=== PATIENT | female | born 1955 | race Caucasian/White ===

== ENCOUNTER → 2021-10-01 09:43 | Outpatient (BNVA) | payer MEDICARE, BC, SELFPAY | PROVIDERS: Family Provider Family Medicine; Referring Provider Internal Medicine; Visit Provider Specialist | DX: M25.552 Pain in left hip (principal) | CPT/HCPCS: 73502 ==

== ENCOUNTER 2021-10-09 06:00 | Outpatient (RCR) | payer MEDICARE, SELFPAY | END 2021-11-07 23:59 | disposition home or self-care (01) | LOC: GPT 06:00 | PROVIDERS: PCP Internal Medicine; Visit Provider Specialist | DX: M54.50 Low back pain, unspecified (principal) | CPT/HCPCS: 97110; 97140; 97161 ==

== ENCOUNTER 2023-11-20 09:50 | Outpatient (CLI) | payer MEDICARE, SELFPAY ==
--- NOTE | 2023-11-20 10:00 | MR_ITS ---
WS: [id number] MRI PELVIS WITHOUT CONTRAST. COMPARISON: LEFT hip radiographs 10/01/2021 Multiplanar, multisequence imaging is performed without contrast. RIGHT hip: Advanced degenerative changes of the RIGHT hip joint. Loss of cartilage with subchondral c ystic changes and erosions along the femoral head. Synovial thickening and a moderate size joint effu vanessa. There is slight lateral subluxation of the femoral head with a large osteophyte from the acetab ulum extending laterally. Abnormal signal in the labrum. LEFT hip: Mild narrowing of the LEFT hip. No marrow edema. Very minimal osteophytosis. No definite la bral abnormality. Normal appearance of the SI joints. Heterogeneous appearance of the central uterus. Uterus appears sl ightly lobulated. This may be a fibroid uterus. No free fluid in the pelvis. No history of any pelvic surgery provided. L5 anterolisthesis by 10 mm. Severe disc space narrowing at L5-S1. MR/MR pelvis wo con* [id number] IMPRESSION: 1. Advanced degenerative arthritis at the RIGHT hip. Subchondral cystic change s with erosions and lateral subluxation. 2. Minimal degenerative changes at the LEFT hip. 3. Grade 2 spondylolisthesis of L5 with severe disc space narrowing at L5-S1. 4. Low-attenuation soft tissue mass in the pelvis. Suspect this is probably a fibroid uterus. No prior surgeries reported. Recommend additional evaluation wi th transvaginal pelvic ultrasound imaging. Uterus and endometrium need to be fu rther evaluated.
== END 2023-11-20 09:51 | disposition home or self-care (01) ==
LOC: RAD 09:51
PROVIDERS: PCP Internal Medicine; Visit Provider Family Medicine
DX: I71.012 Dissection of descending thoracic aorta (principal); M16.11 Unilateral primary osteoarthritis, right hip; M43.16 Spondylolisthesis, lumbar region; R19.09 Other intra-abdominal and pelvic swelling, mass and lump
CPT/HCPCS: 72195

== ENCOUNTER 2024-04-07 11:28 | Emergency (ER) | payer MEDICARE, SELFPAY ==
[2024-04-07 11:33] VITALS: BP 99/71; PULSE 99; RESP 16; TEMP 36.8; O2SAT 98; BMI 17.4
--- NOTE | 2024-04-07 11:40 | XRR_ITS ---
PROCEDURE INFORMATION: Exam: XR Chest Exam date and time: 04/07/2024 12:22 PM Age: 68 years old Clinical indication: Pain; Angina pectoris; Additional info: Cp TECHNIQUE: Imaging protocol: Radiologic exam of the chest. Views: 1 view. COMPARISON: No relevant prior studies available. FINDINGS: Lungs: There is atelectasis or scarring in the right upper lung zone. There are no definite infiltrates. Linear opacity projecting in the right lung apex is favored to be a skin fold Pleural spaces: Unremarkable. No pleural effusion. No pneumothorax. Heart/Mediastinum: The heart size is within normal limits. Bones/joints: There is scoliosis convex right. There are degenerative changes in the spine. XR/XR chest 1V portable [id number] IMPRESSION: No acute infiltrates detected
--- NOTE | 2024-04-07 11:40 | ECG_ITS ---
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 [id number]
--- NOTE | 2024-04-07 11:40 | CTR_ITS ---
PROCEDURE INFORMATION: Exam: CTA Chest With Contrast Exam date and time: 04/07/2024 12:50 PM Age: 68 years old Clinical indication: Angina pectoris; Chest pain, low BP; Additional info: Cp TECHNIQUE: Imaging protocol: Computed tomographic angiography of the chest with contrast. Exam focused on the arteries. 3D rendering (Not supervised by radiologist): MIP and/or 3D reconstructed images were created by the technologist. Radiation optimization: All CT scans at this facility use at least one of these dose optimization techniques: automated exposure control; mA and/or kV adjustment per patient size (includes targeted exams where dose is matched to clinical indication); or iterative reconstruction. Contrast material: OMNI 350; Contrast volume: 95 ml; Contrast route: INTRAVENOUS (IV); COMPARISON: CR XR chest 1V portable [id number] 04/07/2024 12:22 PM RADIATION DOSE METRICS: Total DLP (mGy-cm): 168.47 FINDINGS: Study is degraded by motion artifact Pulmonary arteries: See Heart finding. Aorta: There are atherosclerotic changes in the aorta. There is no dissection The inferior thoracic descending aorta is dilated measuring 4.0 x 3.7 cm Lungs: There is a semi-solid nodule in the left upper lobe measuring 4 mm on image 128 of series 6. There is a 7 mm nodule in the right upper lobe seen on series 6 image 88. There is a 6 mm nodule anteriorly in the right upper lobe on image 100. There is a 4 mm nodule adjacent to the minor fissure on image 244. There is a 3 mm nodule in the right middle lobe on image 291. There are no endobronchial lesions. There is atelectasis in both lower lobes without definite infiltrate Pleural spaces: There are small bilateral pleural effusions Heart: There is a zncgt-xr-peuksrvw size pericardial effusion. No pulmonary embolus is detected in the main pulmonary trunk. No pulmonary embolus is detected in the main right or left pulmonary arteries. No pulmonary embolus is detected in proximal or 2nd order branch vessels Coronary arteries: There is coronary artery calcification. Lymph nodes: there is mediastinal adenopathy for example an AP window lymph node is measured on series 6, image 151 at 1.7 x 0.7 cm. There is enlarged right hilar lymph node measuring 1.5 x 1.3 cm on image 212. Adrenal glands: No adrenal lesions detected Kidneys: There is an eccentrically arising nodule from the upper pole of the left kidney measuring 1.3 x 1.2 x 1.3 cm. This is not a simple cyst. It could be a high density or hemorrhagic cyst or could be solid. This lesion needs follow-up either with a CT adrenal mass protocol or MRI. Bones/joints: There are degenerative changes and scoliosis in the thoracic spine. Soft tissues: Unremarkable. CT/CT angio chest PE protcl [id number] IMPRESSION: 1. Negative for detectable pulmonary embolus 2. 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 No dissection detected though study was optimized to evaluate the pulmonary arterial system and not the aorta 3. Coronary artery calcification 4. Gbwov-du-nxizvtyv size pericardial effusion 5. Small bilateral pleural effusions 6. Pulmonary nodules as described above. Largest measures 7 mm. Follow-up in 6 months time recommended 7. Eccentrically arising mass from the upper pole of the left kidney which is not a simple cyst and needs follow-up either with CT renal mass protocol or MRI 8. Mediastinal and right hilar adenopathy 9. Study is degraded by motion artifact
--- NOTE | 2024-04-07 11:42 | W.ED.GENADLT ---
HPI - General Adult General: Chief complaint: General Medical Stated complaint: b/p high, Time Seen by Provider: 04/07/24 11:32 Source: patient Mode of arrival: ambulatory Limitations: no limitations History of Present Illness: 68-year-old female states she been having some palpitations over the last 2 days. She states that her heart rate has been up to the 160s she states she has had some slight dyspnea and some mild chest pain she denies any fever denies any vomiting or diarrhea. Associated symptoms: Reports dyspnea and palpitations; Deny headache(s), nausea, rash or vomiting Related Data Home Medications Medication Instructions Recorded Confirmed No Known Home Medications 04/07/24 04/07/24 Allergies Allergy/AdvReac Type Severity Reaction Status Date / Time No Known Allergies Allergy Unverified 10/01/21 10:13 Review of Systems Const: Denies: fever(s), chills, body aches or change in appetite ENMT: Denies: throat pain or dental pain Card: Reports: palpitations Resp: Reports: dyspnea GI: Denies: abdominal pain, nausea, vomiting or diarrhea : Denies: dysuria Musc: Denies: neck pain or back pain Skin/Breast: Denies: rash Neuro: Denies: headache(s) PFSH ED PFSH: Social History Smoking and tobacco/nicotine status: current every day tobacco/nicotine user (3/4 pack a day) Physical Exam Const: COMMON NORMALS: no acute distress, patient oriented x3 and healthy appearing HENMT: COMMON NORMALS: normocephalic and atraumatic HEAD & SCALP: normocephalic and atraumatic Eye: COMMON NORMALS: conjunctivae normal CONJUNCTIVA: Yes conjunctivae normal Neck/C-Spine: COMMON NORMALS: full ROM and supple Chest: COMMONS NORMALS: normal inspection of the chest Resp: COMMON NORMALS: normal respiratory effort, No retractions, No use of accessory muscles and clear to auscultation bilaterally AUSCULTATION: clear to auscultation bilaterally Cardio: COMMON NORMALS: regular rate, regular rhythm and No murmurs present (Cardio) RATE: regular rate RHYTHM: regular rhythm GI: COMMON NORMALS: Normal to inspection, nondistended, normoactive bowel sounds present, Soft to palpation, non-tender and no masses PALPATION: Yes Soft to palpation Extremity: COMMON NORMALS: normal to inspection and full ROM Neuro: COMMON NORMALS: patient oriented x3, moves all extremities and no focal motor deficits Psych: COMMON NORMALS: mental status grossly normal, Normal thought process present and cooperative THOUGHT PROCESS: Normal thought process present Skin: COMMON NORMALS: no rashes or lesions noted and no wounds GENERAL SKIN EXAM: no rashes or lesions noted Course Vital Signs: Vital signs: Vital Signs Temperature 98.2 F 04/07/24 11:33 Pulse Rate 85 04/07/24 14:42 Respiratory Rate 16 04/07/24 14:42 Blood Pressure 121/75 04/07/24 14:42 Pulse Oximetry 96 04/07/24 14:42 Oxygen Delivery Me thod Room Air 04/07/24 13:33 MDM - General Adult Medical Decision Making Patient presents here with episodes of tachycardia she had had some vomiting abdominal pain here after the CT could be in response to the contrast. I did inform her CT of her chest showed small pleural effusions with possible cardiac effusion did offer her admission she states she feels improved would like to follow-up with her PCP her heart rate blood pressures vital signs here are all been normal and so has her troponin she has had no chest pain or shortness of breath here that is been severe in nature she is return if worsening she understands agrees to plan. Medical Records I reviewed the patient's medical records. Lab Data I reviewed the patient's lab results. 04/07/24 11:40 04/07/24 11:40 Radiology Impressions Chest CTA 04/07/24 11:40 IMPRESSION: 1. Negative for detectable pulmonary embolus 2. 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 No dissection detected though study was optimized to evaluate the pulmonary arterial system and not the aorta 3. Coronary artery calcification 4. Koiqn-mw-ztockpaf size pericardial effusion 5. Small bilateral pleural effusions 6. Pulmonary nodules as described above. Largest measures 7 mm. Follow-up in 6 months time recommended 7. Eccentrically arising mass from the upper pole of the left kidney which is not a simple cyst and needs follow-up either with CT renal mass protocol or MRI 8. Mediastinal and right hilar adenopathy 9. Study is degraded by motion artifact Chest X-Ray 04/07/24 11:40 IMPRESSION: No acute infiltrates detected Gallbladder Ultrasound 04/07/24 13:29 IMPRESSION: 1. Slightly contracted gallbladder with small amount sludge and a few small gallstones. 2. No intrahepatic bile duct dilatation or common bile duct dilatation. 3. Hepatic hemangioma, LEFT lobe. Laboratory Results WBC 11.28 10^3/uL (3.29-11.43) 04/07/24 11:40 RBC 3.55 10^6/uL (3.85-5.65) L 04/07/24 11:40 Hgb 9.40 g/dL (11.27-16.99) L 04/07/24 11:40 Hct 29.1 % (36-47) L 04/07/24 11:40 MCV 82.0 fl (85-98) L 04/07/24 11:40 MCH 26.5 pg (27-33) L 04/07/24 11:40 MCHC 32.3 g/dL (30-55) 04/07/24 11:40 RDW 14.4 % (12.1-15.1) 04/07/24 11:40 Plt Count 702 10^3/cmm (157-399) H 04/07/24 11:40 MPV 9.2 fL (7.4-10.4) 04/07/24 11:40 Neut % (Auto) 76.9 % 04/07/24 11:40 Lymph % (Auto) 16.0 % 04/07/24 11:40 [place] % (Auto) 5.6 % 04/07/24 11:40 Eos % (Auto) 0.5 % 04/07/24 11:40 Baso % (Auto) 0.5 % 04/07/24 11:40 Neut # (Auto) 8.67 10^3/uL (1.8-7.7) H 04/07/24 11:40 Lymph # (Auto) 1.8 10^3/uL (0.8-4.8) 04/07/24 11:40 [place] # (Auto) 0.6 10^3/uL (0.2-0.9) 04/07/24 11:40 Eos # (Auto) 0.1 10^3/uL (0.0-0.8) 04/07/24 11:40 Baso # (Auto) 0.1 10^3/uL (0.0-0.1) 04/07/24 11:40 Nucleated RBC % (auto) 0 % 04/07/24 11:40 Nucleated RBCs # 0.0 /100WBC 04/07/24 11:40 PT 15.30 SECONDS (12.1-14.9) H 04/07/24 11:40 INR 1.13 (0.8-1.2) 04/07/24 11:40 Sodium 135 mmol/L (136-145) L 04/07/24 11:40 Potassium 4.4 mmol/L (3.5-5.1) 04/07/24 11:40 Chloride 96 mmol/L (98-107) L 04/07/24 11:40 Carbon Dioxide 24 mmol/L (22-29) 04/07/24 11:40 Anion Gap 19.4 (5-19) H 04/07/24 11:40 BUN 19 mg/dL (8-23) 04/07/24 11:40 Creatinine 0.8 mg/dL (0.5-0.9) 04/07/24 11:40 GFR Calculation 71.5 mL/min (90-130) L 04/07/24 11:40 Glucose 126 mg/dL (65-115) H 04/07/24 11:40 Calculated Osmolality 284 mOsm/kg (285-295) L 04/07/24 11:40 Calcium 9.3 mg/dL (8.5-10.5) 04/07/24 11:40 Total Bilirubin 0.3 mg/dL (0.15-1.2) 04/07/24 11:40 AST 19 U/L (0-32) 04/07/24 11:40 ALT 25 U/L (0-33) 04/07/24 11:40 Alkaline Phosphatase 182 U/L (35-105) H 04/07/24 11:40 Troponin T Baseline 17 ng/L (0-10) H 04/07/24 11:40 Troponin T 120 Minute 17.32 ng/L (0-10) H 04/07/24 13:32 Delta Troponin T 0.32 ABS# (0-10) 04/07/24 13:32 NT-Pro-B Natriuret Pep 2317 pg/mL (0-125) H 04/07/24 11:40 Total Protein 6.7 g/dL (6.6-8.7) 04/07/24 11:40 Albumin 3.5 g/dL (3.5-5.2) 04/07/24 11:40 Globulin 3.2 g/dL (1.3-4.6) 04/07/24 11:40 All radiology interpretation(s) finalized by discharge EKG Data EKG 1: I personally reviewed and interpreted this EKG as follows: EKG interpretation date: 04/07/24 EKG interpretation time: 11:47 Interpretation: Normal sinus rhythm heart rate [address] or T wave abnormalities QRS 88 QTc 405 Computer generated interpretation: Chest CTA 04/07/24 11:40 IMPRESSION: 1. Negative for detectable pulmonary embolus 2. 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 No dissection detected though study was optimized to evaluate the pulmonary arterial system and not the aorta 3. Coronary artery calcification 4. Gdlsu-yn-jywizmgm size pericardial effusion 5. Small bilateral pleural effusions 6. Pulmonary nodules as described above. Largest measures 7 mm. Follow-up in 6 months time recommended 7. Eccentrically arising mass from the upper pole of the left kidney which is not a simple cyst and needs follow-up either with CT renal mass protocol or MRI 8. Mediastinal and right hilar adenopathy 9. Study is degraded by motion artifact Chest X-Ray 04/07/24 11:40 IMPRESSION: No acute infiltrates detected Gallbladder Ultrasound 04/07/24 13:29 IMPRESSION: 1. Slightly contracted gallbladder with small amount sludge and a few small gallstones. 2. No intrahepatic bile duct dilatation or common bile duct dilatation. 3. Hepatic hemangioma, LEFT lobe. Discharge Plan Discharge Patient Disposition: Home Clinical Impression: Palpitations, Gallstones Condition: Stable Prescriptions: No Action No Known Home Medications Discharge Orders: Discharge ED (Routine); Ordered 04/07/24 Ordered By: Leslie Buchanan Referrals: Emerald Bianchi [Primary Care Provider] - 4-7 days Discharge Diet: Advance as tolerated Discharge Activity: Resume usual activity Patient Instructions: Heart Palpitations (ED), Gallstones (ED) Coding Level of Care Code ED Systems Analysis Manager for Ashley Garsia
[2024-04-07 11:48] LABS: Basophils # 0.1 10^3/uL (0.0-0.1); Basophils % 0.5 %; Eosinophils # 0.1 10^3/uL (0.0-0.8); Eosinophils % 0.5 %; Hematocrit 29.1 % (36-47); Lymphocytes # 1.8 10^3/uL (0.8-4.8); Mean Corpuscular HGB Conc 32.3 g/dL (30-55); Mean Corpuscular Hemoglobin 26.5 pg (27-33); Mean Platelet Volume 9.2 fL (7.4-10.4); Monocytes # 0.6 10^3/uL (0.2-0.9); Monocytes % 5.6 %; Neutrophils # 8.67 10^3/uL (1.8-7.7); Neutrophils % 76.9 %; Nucleated Red Blood Cells % 0 %; Platelet Count 702 10^3/cmm (157-399); Red Blood Count 3.55 10^6/uL (3.85-5.65); Red Cell Distribution Width 14.4 % (12.1-15.1); White Blood Count 11.28 10^3/uL (3.29-11.43)
[2024-04-07 12:00] VITALS: BP 110/67; PULSE 84; RESP 18; O2SAT 94
[2024-04-07 12:03] LABS: INR 1.13 (0.8-1.2)
[2024-04-07 12:09] LABS: Troponin(5th) Baseline 17 ng/L (0-10)
[2024-04-07 12:44] LABS: Alanine Aminotransferase 25 U/L (0-33); Albumin Level 3.5 g/dL (3.5-5.2); Alkaline Phosphatase 182 U/L (35-105); Anion Gap 19.4 (5-19); Aspartate Amino Transferase 19 U/L (0-32); Blood Urea Nitrogen 19 mg/dL (8-23); Calcium 9.3 mg/dL (8.5-10.5); Carbon Dioxide 24 mmol/L (22-29); Chloride 96 mmol/L (98-107); Creatinine Clr Calc Pharmacy 57.3648; Globulin 3.2 g/dL (1.3-4.6); Glomerular Filtration Rate 71.5 mL/min (90-130); Glucose 126 mg/dL (65-115); NT Pro B Type Natriuretic Pept 2317 pg/mL (0-125); Osmolality Calculated 284 mOsm/kg (285-295); Potassium 4.4 mmol/L (3.5-5.1); Sodium 135 mmol/L (136-145); Total Bilirubin 0.3 mg/dL (0.15-1.2); Total Protein 6.7 g/dL (6.6-8.7)
[2024-04-07] MEDS: iohexol 350 mg/mL 500 mL Btl (per mL) IV (13:07)
--- NOTE | 2024-04-07 13:29 | US_ITS ---
WS: [id number] RIGHT UPPER QUADRANT ULTRASOUND HISTORY: abd pain COMPARISON: None available. Liver: 16.3 cm in length. Normal size liver. Hypoechoic mass along the surface of the LEFT lobe measu res 2.4 x 1.4 cm. Most likely an hemangioma. No intrahepatic duct dilatation. Portal Vein: Normal hepatopetal flow with monophasic waveform. Gallbladder: Mild gallbladder wall contraction. Sludge and debris within the gallbladder. Additional small stones layering in the gallbladder. CBD: 0.4 cm Pancreas: Normal. Right kidney: 11.5 cm in length. Normal size and echogenicity. No hydronephrosis or mass. Aorta and IVC: Unremarkable abdominal aorta and IVC. No ascites. US/US gall bladder [id number] IMPRESSION: 1. Slightly contracted gallbladder with small amount sludge and a few small ga llstones. 2. No intrahepatic bile duct dilatation or common bile duct dilatation. 3. Hepatic hemangioma, LEFT lobe.
[2024-04-07 13:33] VITALS: BP 114/58; PULSE 74; RESP 18; O2SAT 99
--- NOTE | 2024-04-07 14:11 | ECG_ITS ---
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 [email or web address]
[2024-04-07 14:14] LABS: Troponin 5 2HR 17.32 ng/L (0-10); Troponin 5 2HR Delta 0.32 ABS# (0-10)
[2024-04-07 14:42] VITALS: BP 121/75; PULSE 85; RESP 16; O2SAT 96
--- NOTE | 2024-04-09 00:51 | DCPLANNER ---
Message sent to General Surgery
== END 2024-04-07 14:59 | disposition home or self-care (01) ==
PROVIDERS: Emergency Provider Emergency Medicine; PCP Internal Medicine
DX: R00.2 Palpitations (principal); K80.20 Calculus of gallbladder without cholecystitis without obstruction; F17.210 Nicotine dependence, cigarettes, uncomplicated
CPT/HCPCS: 36415; 71045; 71275; 76705; 80053; 83880; 84484; 85025; 85610; 93005; 99285

== ENCOUNTER → 2024-07-20 13:26 | Outpatient (BNVA) | payer MEDICARE, OTHER, SELFPAY | PROVIDERS: PCP Internal Medicine; Visit Provider Orthopaedic Surgery | DX: M54.9 Dorsalgia, unspecified (principal) | CPT/HCPCS: 72110; 99203 ==

== ENCOUNTER 2024-07-26 10:06 | Emergency (ER) | payer MEDICARE, OTHER, SELFPAY ==
[2024-07-26 10:14] VITALS: BP 151/86; PULSE 100; TEMP 36.6; O2SAT 100; BMI 17.8
[2024-07-26 11:07] LABS: Basophils # 0.1 10^3/uL (0.0-0.1); Basophils % 1.5 %; Eosinophils # 0.1 10^3/uL (0.0-0.8); Eosinophils % 1.5 %; Hematocrit 40.1 % (36-47); Lymphocytes # 1.8 10^3/uL (0.8-4.8); Lymphocytes % 25.7 %; Mean Corpuscular HGB Conc 31.7 g/dL (30-55); Mean Corpuscular Hemoglobin 26.3 pg (27-33); Mean Platelet Volume 9.8 fL (7.4-10.4); Monocytes # 0.5 10^3/uL (0.2-0.9); Monocytes % 6.9 %; Neutrophils # 4.39 10^3/uL (1.8-7.7); Neutrophils % 64.1 %; Nucleated Red Blood Cells % 0 %; Platelet Count 245 10^3/cmm (157-399); Red Blood Count 4.83 10^6/uL (3.85-5.65); Red Cell Distribution Width 18.6 % (12.1-15.1); White Blood Count 6.84 10^3/uL (3.29-11.43)
[2024-07-26 11:23] LABS: INR 2.76 (0.8-1.2)
[2024-07-26 11:27] LABS: Alanine Aminotransferase 9 U/L (0-33); Albumin Level 4.3 g/dL (3.5-5.2); Alkaline Phosphatase 116 U/L (35-105); Aspartate Amino Transferase 20 U/L (0-32); Blood Urea Nitrogen 14 mg/dL (8-23); Calcium 9.6 mg/dL (8.5-10.5); Carbon Dioxide 23 mmol/L (22-29); Chloride 100 mmol/L (98-107); Creatinine Clr Calc Pharmacy 56.9645; Globulin 4.2 g/dL (1.3-4.6); Glomerular Filtration Rate 71.3 mL/min (90-130); Glucose 87 mg/dL (65-115); Osmolality Calculated 282 mOsm/kg (285-295); Sodium 136 mmol/L (136-145); Total Bilirubin 0.2 mg/dL (0.15-1.2); Total Protein 8.5 g/dL (6.6-8.7)
[2024-07-26 11:29] LABS: Anion Gap 17.3 (5-19); Potassium 4.3 mmol/L (3.5-5.1)
== END 2024-07-26 12:11 | disposition left against medical advice (07) ==
PROVIDERS: Emergency Medicine; Emergency Provider Family Medicine; PCP Internal Medicine
DX: Z01.89 Encounter for other specified special examinations (principal); Z53.21 Procedure and treatment not carried out due to patient leaving prior to being seen by health care provider
CPT/HCPCS: 36415; 80053; 85025; 85610

== ENCOUNTER 2024-07-26 12:03 | Outpatient (CLI) | payer MEDICARE, OTHER, SELFPAY ==
--- NOTE | 2024-07-26 12:15 | MR_ITS ---
WS: [id number] MRI LUMBAR SPINE NONCONTRAST HISTORY: Back Pain COMPARISON: None available. TECHNIQUE: Sagittal and axial multisequence imaging is submitted. Mild reversal of the normal cervical lordosis. Mild disc osteophyte encroachment upon the ventral cervical cord. L5 anterolisthesis by 13 mm. 2 to 3 mm retrolisthesis of the L1-L3. Disc spaces are all narrowed and desiccated. Severe disc base narrowing at L5-S1. No compression fractures. Conus terminates normally at L1-2 disc level. T12-L1: Mild annular disc bulging. Shallow RIGHT paracentral disc protrusion. No stenosis. L1-L2: Marked osteophytic ridging and annular disc bulging. Disc encroachment upon the ventral thecal sac and subarticular recesses. Moderate bilateral foraminal stenosis and mild subarticular recess encroachment. L2-L3: Diffuse annular disc bulging with ligamentum flavum and facet arthritis. Mild central, subarticular recess and moderate bilateral foraminal stenosis. There is mild disc contact on the traversing L3 nerve roots. L3-L4: Diffuse marked annular disc bulging encroaching upon the ventral thecal sac and traversing L4 nerve roots. Osteophytic ridging and facet arthritis. LEFT foraminal broad-based disc bulging or protrusion resulting in moderate to severe LEFT foraminal stenosis. Moderate foraminal stenosis on the RIGHT. L4-L5: Mild annular disc bulging with LEFT foraminal disc osteophyte resulting in moderate to severe foraminal stenosis. Moderate stenosis on the RIGHT. L5-S1: Unroofing of the disc due to the anterolisthesis of L5. Severe bilateral foraminal stenosis and subarticular recess stenosis. There is significant disc osteophyte contact on L5 and S1 nerve roots. Ectatic atherosclerotic abdominal aorta. Bilateral renal cysts. The largest on the LEFT is 4.3 cm. MR/MR lumbar spine wo con* [id number] IMPRESSION: 1. Grade 2 spondylolisthesis of L5 with bilateral pars defects. 2. Severe disc space narrowing and desiccation at L5-S1. 3. L5-S1: Severe bilateral foraminal and subarticular recess stenosis. There i s disc contact on the L5 and S1 nerve roots. 4. L3-4: LEFT foraminal broad-based disc protrusion or disc bulging resulting in moderate to severe LEFT foraminal stenosis. Moderate RIGHT foraminal stenosi s. 5. L4-5: LEFT foraminal disc osteophyte resulting in moderate to severe stenos is. Moderate stenosis on the RIGHT. 6. L2-3: Mild central, subarticular recess and moderate bilateral foraminal st enosis. 7. L1-2: Moderate bilateral foraminal stenosis with mild subarticular recess e ncroachment.
== END 2024-07-26 12:04 | disposition home or self-care (01) ==
PROVIDERS: PCP Internal Medicine; Visit Provider Orthopaedic Surgery
DX: M48.07 Spinal stenosis, lumbosacral region (principal); M43.16 Spondylolisthesis, lumbar region; M51.379 Other intervertebral disc degeneration, lumbosacral region without mention of lumbar back pain or lower extremity pain; M51.26 Other intervertebral disc displacement, lumbar region; M51.369 Other intervertebral disc degeneration, lumbar region without mention of lumbar back pain or lower extremity pain; M48.061 Spinal stenosis, lumbar region without neurogenic claudication; M25.78 Osteophyte, vertebrae; M51.35 Other intervertebral disc degeneration, thoracolumbar region; M24.28 Disorder of ligament, vertebrae; M47.896 Other spondylosis, lumbar region; I77.811 Abdominal aortic ectasia; N28.1 Cyst of kidney, acquired
CPT/HCPCS: 72148

== ENCOUNTER → 2024-08-05 13:41 | Outpatient (BNVA) | payer MEDICARE, OTHER, SELFPAY | PROVIDERS: PCP Internal Medicine; Visit Provider Orthopaedic Surgery | DX: M43.17 Spondylolisthesis, lumbosacral region (principal) | CPT/HCPCS: 99213 ==